=== PATIENT | female | born 1990 | race African-American/Black ===

== ENCOUNTER → 2018-03-07 09:37 | Outpatient (CLI) | payer OTHER, MEDICAID, SELFPAY ==
--- NOTE | 2018-03-07 09:39 | DI.US.S_ITS ---
PROCEDURE: US OB >= 14 WEEKS FETUS INDICATIONS: Anatomy Scan OUTSIDE/PRIOR DATING DATA: Last menstrual period (LMP): 10/22/17. LMP-based estimated date of delivery (JESSICA): 07/29/18. First dating scan (date and location): 03/07/18. Estimated date of delivery (JESSICA) from first dating scan: 07/26/18. TECHNIQUE: Real-time scanning was performed of the fetus, with image documentation and biometric measurements. COMPARISON: None. FINDINGS: General: A single living intrauterine gestation is present. Presentation: Vertex. Placenta: Placental position is anterior, without previa. Lower placental edge 2 cm or less from internal cervical os qualifies as low lying placenta. Amniotic fluid index: 14.1 cm, normal range is 5-24 cm. heart rate: 140 beats per minute. Maternal cervical canal: 5.9 cm long. Normal lower limit is 2.5 cm. biometrics: Biparietal diameter: 4.7 cm 20 weeks one day Head circumference: 17.2 cm 19 weeks 6 days Abdominal circumference: 14.1 cm 19 weeks 3 days Femur length: 3.2 cm 20 weeks zero days Estimated gestational age from initial scan: not applicable. Composite gestational age from present scan: 19 weeks 6 days Estimated weight and percentile: 310 g 64th percentile Measurement variability for biometric dating: +/- 7 days from 14 weeks to 15 weeks 6 days gestation, +/- 10 days from 16 weeks to 21 weeks 6 days gestation, +/- 2 weeks from 22 weeks to 27 weeks 6 days gestation, +/- 3 weeks for 28 weeks gestation or later. weight reference: 4500 g or EFW >90/95% is considered macrosomia or large for gestational age. EFW <10% is small for gestational age. EFW 5% or less is considered intra-uterine growth restriction. Anatomic survey: Neuro: Ventricles are non-dilated at less than 10 mm. Cisterna magna is normal at 3-11 mm. Cerebellum is normal in size and morphology. Nuchal skin fold: Normal at less than 6 mm between 14-21 weeks gestational age. Face: Nose and lips, facial profile are normal. Spine: No evidence for spina bifida. Heart: 4-chambered heart is present, with normal ventricular outflow tracts. Diaphragm: Diaphragm is intact. Stomach: Left-sided stomach is present. Kidneys: No hydronephrosis. Normal is less than 5 mm in 2nd trimester, less than 7 mm in 3rd trimester. Cord: 3-vessel cord has orthotopic insertion. Bladder: Normal in size. Extremities: All 4 extremities identified. IMPRESSION: 1. Single live intrauterine with ultrasound gestational age of 19 weeks 6 days corresponding to ultrasound JESSICA of 07/26/18. 2. Anatomy is within normal limits. Dictated by: Daria Strauss M.D. on 03/07/2018 at 17:14 Approved by: Daria Strauss M.D. on 03/07/2018 at 17:15
== END ==
PROVIDERS: PCP Family Medicine; Visit Provider Family Medicine
DX: Z34.02 Encounter for supervision of normal first pregnancy, second trimester (principal); Z3A.19 19 weeks gestation of pregnancy
CPT/HCPCS: 76811

== ENCOUNTER → 2018-05-02 10:52 | Outpatient (CLI) | payer OTHER, MEDICAID, SELFPAY ==
[2018-05-02 12:33] LABS: Hematocrit 31.1 % (36-46); Hemoglobin 10.4 g/dL (12.0-16.0)
[2018-05-02 13:04] LABS: GTT (PREG) 1 Hour PP 50gm Dose 98 mg/dL (76-139)
== END ==
PROVIDERS: PCP Family Medicine; Visit Provider Family Medicine
DX: Z34.02 Encounter for supervision of normal first pregnancy, second trimester (principal)
CPT/HCPCS: 36415; 82950; 85014; 85018

== ENCOUNTER → 2018-07-04 11:34 | Outpatient (CLI) | payer OTHER, MEDICAID, SELFPAY ==
[2018-07-05 08:47] LABS: Strep Grp B PCR NEG for Grp B Strep
== END ==
PROVIDERS: PCP Family Medicine; Visit Provider Family Medicine
DX: Z3A.36 36 weeks gestation of pregnancy (principal)
CPT/HCPCS: 87653

== ENCOUNTER 2018-07-23 18:11 | Observation (INO) | payer OTHER, MEDICAID, SELFPAY ==
[2018-07-23] MEDS: miSOPROStol 25 MCG TABLET VAG (19:44)
[2018-07-23 20:02] LABS: Add Manual Diff / Slide Review NO; Basophils Percent Auto 0.3 % (0-2); Eosinophils Percent Auto 3.3 % (2-4); Hematocrit 33.5 % (36-46); Hemoglobin 11.1 g/dL (12.0-16.0); Mean Corpuscular HGB Conc 33.2 % (30-36); Mean Corpuscular Hemoglobin 26.8 PG (26-34); Mean Corpuscular Volume 80.7 fL (80-100); Monocytes Percent Auto 5.5 % (3-14); Neutrophils Absolute Auto 6200 /uL (3000-5900); Neutrophils Percent Auto 67.9 % (50-75); Platelet Count 201 X10^3/uL (150-400); Red Blood Cell Count 4.15 X10^6/uL (4.0-5.2); Red Cell Distribution Width 13.4 % (11.6-14.8); White Blood Cell Count 9.1 X10^3/uL (4.5-11.0)
[2018-07-23 20:49] VITALS: BP 124/86
[2018-07-23 21:26] LABS: Add Manual Diff / Slide Review NO; Basophils Percent Auto 0.4 % (0-2); Eosinophils Percent Auto 3.3 % (2-4); Hematocrit 33.9 % (36-46); Hemoglobin 11.2 g/dL (12.0-16.0); Lymphocytes Percent Auto 23.3 % (25-40); Mean Corpuscular HGB Conc 32.9 % (30-36); Mean Corpuscular Hemoglobin 26.5 PG (26-34); Mean Corpuscular Volume 80.7 fL (80-100); Monocytes Percent Auto 5.3 % (3-14); Neutrophils Absolute Auto 6300 /uL (3000-5900); Neutrophils Percent Auto 67.7 % (50-75); Platelet Count 193 X10^3/uL (150-400); Red Blood Cell Count 4.21 X10^6/uL (4.0-5.2); Red Cell Distribution Width 13.3 % (11.6-14.8); White Blood Cell Count 9.3 X10^3/uL (4.5-11.0)
[2018-07-23 22:10] LABS: Hepatitis B Surface Antigen NEGATIVE s/c (NEGATIVE); Rubella Antibody IgG 9.3 IU/mL (>15)
[2018-07-24] MEDS: miSOPROStol 25 MCG TABLET VAG ×2 (00:37→05:17)
[2018-07-24 02:55] LABS: Urine N gonorrhoeae NOT DETECTED
[2018-07-24 03:21] LABS: Urine Chlamydia NOT DETECTED
--- NOTE | 2018-07-24 07:33 | P.HPOB_ITS ---
OB HPI Date/Time Date of admission: 07/23/18 Date Patient Seen: 07/24/18 Time Patient Seen: 08:00 History of Present Condition Chief complaint: LABOR AND DELIVERY : 1 Para: 0 Estimated Date of Delivery: 07/29/18 Estimated Gestational Age (weeks): 39w2d Narrative: Bobbi Ortega is a 27 yo at 39w2d who presented for IOL due to social reasons, living in the [facility]. She denied any regular contractions , LOF, vaginal bleeding before presentation. She is feeling baby move regularly. Indications Indication for induction OB: other History of Present care: good care and initiated at week # (11) Dating criteria: LMP confirmed by 1st trimester US Ultrasounds: normal mid trimester US Obstetrical complications: none Medical complications: none Preadmission Labs Blood type: O (+) positive -: Antibody screen: negative, GBS status: negative, HBsAG: negative, HIV: negative, HSV 1: positive, HSV 2: negative and RPR/VDLR: negative -: Chlamydia screen: not detected and Gonorrhea screen: not detected -: Rubella: immune and Varicella: immune HCT: 33.9 HCAB: negative 1 hr GTT: 98 Evaluation Evaluation Baseline heart rate: 135 Variability: Moderate (11-25) monitor accelerations: Present monitor decelerations: Absent Contraction Frequency (minutes): 3 Uterine Contraction Intensity: Moderate Category of Tracing: I Cervical dilation (cm): 2 Cervical effacement (%): 70 station: -3 Laboratory results: Laboratory Tests 07/23/18 07/23/18 07/23/18 19:40 19:40 21:03 WBC 9.1 9.3 RBC 4.15 4.21 Hgb 11.1 L 11.2 L Hct 33.5 L 33.9 L MCV 80.7 80.7 MCH 26.8 26.5 MCHC 33.2 32.9 RDW 13.4 13.3 Plt Count 201 193 Neut % (Auto) 67.9 67.7 Lymph % (Auto) 23.0 L 23.3 L [place] % (Auto) 5.5 5.3 Eos % (Auto) 3.3 3.3 Baso % (Auto) 0.3 0.4 Neut # (Auto) 6200 H 6300 H Ur Chlamydia DNA (PCR) Hep Bs Antigen Rubella Antibody N gonorrhoeae DNA (PCR) Blood Type O Positive Antibody Screen Negative 07/23/18 07/23/18 21:03 Unknown WBC RBC Hgb Hct MCV MCH MCHC RDW Plt Count Neut % (Auto) Lymph % (Auto) [place] % (Auto) Eos % (Auto) Baso % (Auto) Neut # (Auto) Ur Chlamydia DNA (PCR) Not detected Hep Bs Antigen Negative Rubella Antibody 9.3 L N gonorrhoeae DNA (PCR) Not detected Blood Type Antibody Screen PFSH Social History Smoking Status: Never smoker Meds Home Medications Medication Instructions Recorded Confirmed Type ferrous gluconate 240 mg (27 mg 240 mg PO DAILY tab 02/07/18 02/07/18 History iron) tablet ondansetron HCl 4 mg tablet 4 mg PO Q6H PRN 02/07/18 02/07/18 History doxylamine 10 mg-pyridoxine (vit 1 tab PO DAILY #30 tab 04/04/18 Rx B6) 10 mg tablet,delayed release vitamin 16-iron 35 1 cap PO DAILY #90 cap 06/27/18 Rx mg-folic acid 1 mg-omega-3 200 mg capsule Allergies Allergy/AdvReac Type Severity Reaction Status Date / Time nut - unspecified Allergy Severe Anaphylaxis Verified 07/23/18 19:59 apple Allergy Mild Gastrointestinal Verified 07/23/18 20:23 Upset corn Allergy Mild Gastrointestinal Verified 07/23/18 20:23 Upset milk Allergy Mild Gastrointestinal Verified 07/23/18 20:23 Upset latex AdvReac Mild Redness of Verified 07/23/18 20:24 Skin Exam Narrative Exam Narrative: Gen: NAD, sitting comfortably in bed, appears well CV: RRR, no murmurs Resp: clear to auscultation bilaterally Abd: soft, gravid, appropriately tender Ext: trace edema Objective Labs Result Diagrams: 07/23/18 21:03 Labs: Laboratory Results - last 24 hr 07/23/18 07/23/18 07/23/18 19:40 19:40 21:03 WBC 9.1 9.3 RBC 4.15 4.21 Hgb 11.1 L 11.2 L Hct 33.5 L 33.9 L MCV 80.7 80.7 MCH 26.8 26.5 MCHC 33.2 32.9 RDW 13.4 13.3 Plt Count 201 193 Neut % (Auto) 67.9 67.7 Lymph % (Auto) 23.0 L 23.3 L [place] % (Auto) 5.5 5.3 Eos % (Auto) 3.3 3.3 Baso % (Auto) 0.3 0.4 Neut # (Auto) 6200 H 6300 H Ur Chlamydia DNA (PCR) Hep Bs Antigen Rubella Antibody N gonorrhoeae DNA (PCR) Blood Type O Positive Antibody Screen Negative 07/23/18 07/23/18 21:03 Unknown WBC RBC Hgb Hct MCV MCH MCHC RDW Plt Count Neut % (Auto) Lymph % (Auto) [place] % (Auto) Eos % (Auto) Baso % (Auto) Neut # (Auto) Ur Chlamydia DNA (PCR) Not detected Hep Bs Antigen Negative Rubella Antibody 9.3 L N gonorrhoeae DNA (PCR) Not detected Blood Type Antibody Screen Assessment and Plan (1) 39 weeks gestation of : Current visit: No Status: Acute Plan: Plan: 27yo at 39w2d here for IOL due to social reasons. Received 3 doses of cytotec overnight with minimal cervical change. Then started on Pitocin. On my cervical recheck after 5hrs on pitocin, again no change with internal os at only 1cm dilation. After discussion with pt and her partner, decision made to go home and return for repeat attempt at IOL next week. FHT reassuring throughout time here. Strict return precautions discussed.
[2018-07-24] MEDS: ONDANSETRON 4 MG/2 ML INJ IV (07:59)
[2018-07-24] MEDS: OXYTOCIN PREMIX 30 UNIT/500 ML PLAST..BAG IV (09:18)
[2018-07-24] MEDS: LACTATED RINGERS 1,000 ML 100 ML IV (09:22)
[2018-07-26 16:09] LABS: RPR Screen Nonreactive (Nonreactive)
== END 2018-07-24 13:50 | disposition home or self-care (01) | DRG 951 ==
PROVIDERS: Admitting Provider Family Medicine; PCP Family Medicine; Visit Provider Family Medicine
DX: O61.0 Failed medical induction of labor (principal); Z3A.39 39 weeks gestation of pregnancy
CPT/HCPCS: 36415; 59025; 59050; 59200; 80055; 85025; 86850; 86900; 86901; 87491; 87591; 96360; G0378; G0379; J2405; J2590

== ENCOUNTER 2018-07-29 14:35 | Inpatient (IN) | payer OTHER, MEDICAID, SELFPAY ==
[2018-07-29] MEDS: LACTATED RINGERS 1,000 ML 1000 ML IV ×2 (18:45)
[2018-07-29] MEDS: OXYTOCIN PREMIX 30 UNIT/500 ML PLAST..BAG IV (20:13)
--- NOTE | 2018-07-29 23:28 | PM.OBHP.1 ---
OB HPI Date/Time Date of admission: 07/29/18 Date Patient Seen: 07/29/18 Time Patient Seen: 16:00 History of Present Condition Chief complaint: OBSERVATION : 1 Para: 0 Estimated Date of Delivery: 07/29/18 Estimated Gestational Age (weeks): 40w0d Narrative: Bobbi Ortega is a 27 year old at 40w0d who presented in active labor. The pt reports having contractions starting at 7am, increasing in intensity and frequency since that time. They were every 5 minutes prior to presentation. She denies any LOF or vaginal bleeding. She is feeling her baby move regularly. History of Present care: good care and initiated at week # (11) Dating criteria: LMP confirmed by 1st trimester US Ultrasounds: normal mid trimester US Obstetrical complications: none Medical complications: none and other (hx of showerman's disease) Preadmission Labs Blood type: O (+) positive -: Antibody screen: negative, GBS status: negative, HBsAG: negative, HIV: negative, HSV 1: positive, HSV 2: negative and RPR/VDLR: negative -: Chlamydia screen: not detected and Gonorrhea screen: not detected -: Rubella: not immune and Varicella: immune HCT: 33.9 HCAB: negative 1 hr GTT: 98 Evaluation Evaluation Baseline heart rate: 125 Variability: Moderate (11-25) monitor accelerations: Present monitor decelerations: Absent Contraction Frequency (minutes): 3 Uterine Contraction Intensity: Strong/Firm Category of Tracing: I Cervical dilation (cm): 4 Cervical effacement (%): 90 station: 0 Laboratory results: Laboratory Tests 07/29/18 17:47 Blood Type O Positive Antibody Screen Negative ON LICENSE OF [facility] Social History Smoking Status: Never smoker Meds Home Medications Medication Instructions Recorded Confirmed Type ferrous gluconate 240 mg (27 mg 240 mg PO DAILY tab 02/07/18 02/07/18 History iron) tablet ondansetron HCl 4 mg tablet 4 mg PO Q6H PRN 02/07/18 02/07/18 History doxylamine 10 mg-pyridoxine (vit 1 tab PO DAILY #30 tab 04/04/18 Rx B6) 10 mg tablet,delayed release vitamin 16-iron 35 1 cap PO DAILY #90 cap 06/27/18 Rx mg-folic acid 1 mg-omega-3 200 mg capsule Allergies Allergy/AdvReac Type Severity Reaction Status Date / Time nut - unspecified Allergy Severe Anaphylaxis Verified 07/23/18 19:59 apple Allergy Mild Gastrointestinal Verified 07/23/18 20:23 Upset corn Allergy Mild Gastrointestinal Verified 07/23/18 20:23 Upset milk Allergy Mild Gastrointestinal Verified 07/23/18 20:23 Upset latex AdvReac Mild Redness of Verified 07/23/18 20:24 Skin Exam Narrative Exam Narrative: Gen: very uncomfortable with contractions, appears well, standing in room CV: RRR, no murmurs Resp: clear to auscultation bilaterally Abd: soft, gravid, appropriately tender, nondistended Ext: trace edema Objective Labs Labs: Laboratory Results - last 24 hr 07/29/18 17:47 Blood Type O Positive Antibody Screen Negative Assessment and Plan (1) 40 weeks gestation of : Current visit: Yes Status: Acute Plan: Plan: 27yo at 40w0d who presented in active labor. No complications with . GBS negative, Rh positive. - Expectant management, anticipate - FHT reassuring - GBS negative, no prophylaxis indicated - Epidural for pain control if desired, pt declines for now
[2018-07-29] MEDS: ONDANSETRON 4 MG/2 ML INJ IV (23:30)
[2018-07-29] MEDS: CALCIUM CARBONATE 500 MG TAB PO (23:30)
--- NOTE | 2018-07-30 00:38 | PM.OBPRVD ---
Delivery date: 07/30/18 Intrapartal events: None Induction method: none Delivery augmentation: rupture of membranes Delivery monitor: external FHT Route of delivery: Episiotomy description: None Laceration description: Perineal - 2nd Degree Delivery repair: chromic Estimated blood loss (mL): 250 Anesthesia type: Epidural Complications: None Narrative: PROCEDURE: at 40w0d presented in active labor and was admitted to Labor and Delivery. The patient progressed through the 1st stage over 9 hours. AROM was performed with thick meconium present. The pt was then started on pitocin due to slowing of her contractions and limited cervical change. Pain was controlled with an epidural. The patient progressed through the 2nd stage over 1 hours and delivered a viable male with APGARs 7/8 at 00:03 via . The pt delivered with a compound presentation with hand by the face. There was a tight nuchal and body cord that was reduced after delivery. The cord was clamped and cut after it stopped pulsing. The perineum and vagina were inspected with 2nd degree laceration repaired with 3-O Chromic. PREPROCEDURE DIAGNOSIS: Intrauterine at 40w0d GBS negative RH positive POSTPROCEDURE DIAGNOSIS: Intrauterine at 40w1d, delivered Same as preprocedure ROM APPEARANCE: Thick meconium BABY A OUTCOME: Viable BABY A WEIGHT: 6lb7oz BABY A NUCHAL CORD: x1 PLACENTA DELIVERY TIME: 00:07 PLACENTA APPEARANCE: Intact [place] Baby 1: gender: Male Presentation: vertex position: Right Occiput Anterior Placenta delivery description: Spontaneous cord vessel description: 3 Vessels score (1 min): 7 score (5 min): 8 Plan for aftercare: Normal care support
[2018-07-30] MEDS: DERMOPLAST SPRAY 20% 60 ML 1 SPRAY TOP (09:17)
[2018-07-30] MEDS: PRENATAL VIT,CALC/IRON/FOLIC 1 TABLET 1 TAB PO (09:17)
[2018-07-30] MEDS: IBUPROFEN 600 MG TABLET PO ×2 (09:18→14:51)
[2018-07-30] MEDS: DOCUSATE 250 MG CAPSULE PO (09:18)
[2018-07-30] MEDS: LANOLIN OINT 7 GM 1 APPLIC TOP (09:18)
[2018-07-30] MEDS: FERROUS GLUCONATE 324 MG TABLET PO (12:38)
[2018-07-30] MEDS: ACETAMINOPHEN 325 MG TABLET 650 MG PO ×2 (12:38→19:19)
[2018-07-31] MEDS: IBUPROFEN 600 MG TABLET PO ×2 (04:41→11:36)
[2018-07-31] MEDS: ACETAMINOPHEN 325 MG TABLET 650 MG PO (04:42)
[2018-07-31 08:23] VITALS: BP 87/59; PULSE 51; RESP 16; TEMP 36.2; O2SAT 99
--- NOTE | 2018-07-31 09:34 | PM.OBDS.1 ---
Discharge Providers Date of admission: 07/29/18 14:35 Primary care physician: Ciar Fuentes MD Consults: 07/30/18 02:48 Consult to Engineering And Scientific Programmer Routine Comment: Discharge provider: Cira Fuentes MD Discharge Date: 07/31/18 Summary Date Patient Seen: 07/31/18 Time Patient Seen: 08:00 Hospital Course: The pt presented in active labor. She received an epidural for pain control. AROM was performed with production of thick meconium. The pt received pitocin for augmentation of labor due to slowing of her contractions. She had a spontaneous vaginal delivery of a viable baby boy on 07/30/18 at 00:03. , there were no complications. At the time of discharge she was voiding, passing flatus, ambulating without difficulty. Her pain was adequately controlled. The patient did have a headache that was likely due to her epidural, however declined blood patch. The patient's lochia was decreasing appropriately. She is undecided regarding contraception. Peripartum Data Delivery Method: Natural Vaginal Laceration description: Perineal - 2nd Degree Episiotomy description: None Procedures: Spontaneous vaginal delivery complications: none 1: Gender: Male Disposition of : home Discharge Diagnosis (1) 40 weeks gestation of : Status: Acute (2) (spontaneous vaginal delivery): Status: Acute Status at Discharge Functional status at discharge: independent ambulation Overall status at discharge: patient is progressing back to baseline Time Spent with Patient Total time spent providing and/or coordinating discharge services: Greater than 30 minutes Discharge Plan Discharge Plan Patient Disposition: Home Discharge Med Rec/Prescriptions Prescriptions: New acetaminophen 325 mg Tablet 650 mg PO Q6HR PRN (Reason: Pain, Mild (1-3)) Qty: 30 RF: 0 benzocaine-menthol [Dermoplast (with menthol)] 20-0.5 % Aerosol 1 spray Topical Q1HR PRN (Reason: perineal pain) Qty: 15 RF: 0 ibuprofen 600 mg Tablet 600 mg PO Q6HR PRN (Reason: Pain, Mild (1-3)) Qty: 30 RF: 0 docusate sodium 250 mg Capsule 250 mg PO DAILY Qty: 30 RF: 0 lanolin [[id number]] Cream 1 applic Topical PRN PRN (Reason: Tenderness) Qty: 15 RF: 0 oxycodone-acetaminophen 5-325 mg Tablet 1 tab PO Q4HR PRN (Reason: Pain, Moderate (4-6)) Qty: 5 RF: 0 Continue doxylamine-pyridoxine (vit B6) [Diclegis] 10-10 mg tablet,delayed release (DR/EC) 1 tab PO DAILY Qty: 30 RF: 3 ondansetron HCl [Zofran] 4 mg tablet 4 mg PO Q6H PRNRF: 0 ferrous gluconate [Fergon] 240 mg (27 mg iron) tablet 240 mg PO DAILY RF: 0 PNV 16-iron [id number] 35-1-200 mg capsule 1 cap PO DAILY Qty: 90 RF: 2 Follow up/Referrals: Cira Fuentes MD [Primary Care Provider] - 6 Weeks (September 12, 2017 for 6 week appointment at1:[address] Fuentes) Provider Discharge Instructions Diet: Diet as Tolerated and Regular Activity: No intercourse for 6 weeks Skin/Wound/Dressing Care Report to your healthcare provider any signs of infection, such as:: chills, fever, increased pain and unusual drainage Visit Report/Discharge Packet Instructions: DI for Labor and Delivery, Vaginal Stand Alone Forms: Discharge: Care Visit Report Forms: Stroke Signs & Symptoms Discharge Data Primary Care Provider: Cira Fuentes Attending Provider: Cira Fuentes Admit Date/Time: 07/29/18 14:35 Discharges patient from system. Discharge Date/Time: 07/31/18 12:14
[2018-07-31] MEDS: PRENATAL VIT,CALC/IRON/FOLIC 1 TABLET 1 TAB PO (09:57)
[2018-07-31] MEDS: DOCUSATE 250 MG CAPSULE PO (09:57)
[2018-07-31] MEDS: MEASLES,MUMPS,RUBELLA VACC/PF 0.5 ML VIAL SUBCUT (09:59)
[2018-07-31 10:50] VITALS: BP 87/59; PULSE 51; RESP 16; TEMP 36.2
== END 2018-07-31 12:14 | disposition home or self-care (01) | DRG 560 ==
PROVIDERS: Admitting Provider Family Medicine; PCP Family Medicine; Visit Provider Family Medicine
DX: O69.1XX0 Labor and delivery complicated by cord around neck, with compression, not applicable or unspecified (principal); O77.0 Labor and delivery complicated by meconium in amniotic fluid; Z3A.40 40 weeks gestation of pregnancy; Z37.0 Single live birth; O70.1 Second degree perineal laceration during delivery; O32.6XX0 Maternal care for compound presentation, not applicable or unspecified; G97.1 Other reaction to spinal and lumbar puncture
CPT/HCPCS: 01967; 59050; 59409; 86850; 86900; 86901; G0379; J2405; J2590